=== PATIENT | male | born 1950 | race Caucasian/White ===

== ENCOUNTER 2016-11-27 10:54 | Day surgery (SDC) | payer BC ==
[2016-11-27] MEDS ORDERED: PROPOFOL 200 MG/20 ML VIAL IVP ONE (11:04)
[2016-11-27] MEDS ORDERED: BENZOCAINE UNIT DOSE SPRAY HURRICAINE MM ONE (11:04)
[2016-11-27] MEDS ORDERED: MIDAZOLAM 2 MG/2 ML VIAL IVP ONE (11:04)
[2016-11-27] MEDS ORDERED: fentaNYL 100 MCG/2 ML INJ IVP ONE (11:04)
[2016-11-27] MEDS ORDERED: NS 500 ML IV ONE (11:04)
--- NOTE | 2016-11-27 11:33 | CPEKG ---
Heart Rate: 89 RR Interval: 674 QRSD Interval: 90 QT Interval: 320 QTC Interval: 390 QRS [place]: 92 T Wave [place]: 7 EKG Severity - ABNORMAL ECG - EKG Impression: ATRIAL FIBRILLATION, V-RATE 65-117 EKG Impression: RIGHT AXIS DEVIATION Electronically Signed By: Bright Jaime 27-Nov-2016 14:20:26
[2016-11-27] MEDS ORDERED: PROPOFOL/EMULSION 500 MG/50 ML BOTTLE IV ONE (11:45)
[2016-11-27] MEDS ORDERED: LIDOCAINE 2% 5 ML SDV ONE (11:45)
[2016-11-27 12:17] LABS: APTT 32.5 SEC (23.0-38.0); INR 1.42 (0.83-1.16); PROTIME(PATIENT) 17.3 SEC (12.0-15.0)
--- NOTE | 2016-11-27 12:24 | CPEKG ---
Heart Rate: 68 RR Interval: 882 P-R Interval: 148 QRSD Interval: 98 QT Interval: 380 QTC Interval: 405 P [place]: 66 QRS [place]: 83 T Wave [place]: 29 EKG Severity - OTHERWISE NORMAL ECG - EKG Impression: SINUS RHYTHM EKG Impression: BORDERLINE RIGHT AXIS DEVIATION Electronically Signed By: Bright Jaime 27-Nov-2016 14:20:07
[2016-11-27 12:27] LABS: ANION GAP 11 mEq/L (8-16); CALCIUM 9.5 mg/dL (8.5-10.4); CARBON DIOXIDE 22 mEq/l (22-31); CHLORIDE 109 mEq/L (97-110); CREATININE 0.9 mg/dL (0.7-1.3); GLOMERULAR FILTRATION RATE > 60; GLUCOSE 103 mg/dL (70-100); MAGNESIUM 2.1 mg/dL (1.6-2.3); POTASSIUM 4.6 mEq/L (3.5-5.2); SODIUM 142 mEq/L (134-144)
--- NOTE | 2016-11-27 15:26 | CPR ---
[f rep st] NONINVASIVE CARDIAC PROCEDURE REPORT PROCEDURE PERFORMED: JERMEY guided cardioversion. JEREMY has been dictated separately. ANESTHESIOLOGIST: Dr. Mack Dao. PROCEDURE: JEREMY was done. There was no significant valvular disease. Left ventricular ejection fra ction was normal. There was no left atrial or left atrial appendage thrombus. A single 200 joule biphasic synchronized DC shock converted the patient to sinus rhythm. There were no complications. /[id number]/MODL
== END 2016-11-27 13:47 | disposition home or self-care (01) ==
LOC: FCATH 10:54
PROVIDERS: ATTEND Internal Medicine Cardiovascular Disease
PROC: 5A2204Z Restoration of Cardiac Rhythm, Single (ICD-10-PCS; principal; 2016-11-27)
PROC: B246ZZ4 Ultrasonography of Right and Left Heart, Transesophageal (ICD-10-PCS; principal; 2016-11-27)
DX: I48.91 Unspecified atrial fibrillation (principal)
CPT/HCPCS: J2704

== ENCOUNTER 2017-01-23 10:57 | Day surgery (SDC) | payer BC ==
[2017-01-23] MEDS ORDERED: NS 500 ML IV ONE (11:00)
[2017-01-23] MEDS ORDERED: MIDAZOLAM 2 MG/2 ML VIAL IVP ONE (11:00)
[2017-01-23] MEDS ORDERED: PROPOFOL 200 MG/20 ML VIAL IVP ONE (11:00)
[2017-01-23] MEDS ORDERED: ETOMIDATE 20 MG/10 ML VIAL IVP ONE (11:00)
[2017-01-23] MEDS ORDERED: fentaNYL 100 MCG/2 ML INJ IVP ONE (11:00)
[2017-01-23] MEDS ORDERED: BENZOCAINE UNIT DOSE SPRAY HURRICAINE MM ONE (11:00)
--- NOTE | 2017-01-23 11:21 | CPEKG ---
Heart Rate: 69 RR Interval: 870 QRSD Interval: 106 QT Interval: 396 QTC Interval: 425 QRS [place]: 101 T Wave [place]: -19 EKG Severity - ABNORMAL ECG - EKG Impression: ATRIAL FIBRILLATION EKG Impression: PROBABLE RIGHT VENTRICULAR HYPERTROPHY EKG Impression: BORDERLINE T ABNORMALITIES, INFERIOR LEADS Electronically Signed By: Parris Back 23-Jan-2017 17:03:03
[2017-01-23] MEDS ORDERED: LIDOCAINE 2% 5 ML SDV ONE (11:33)
[2017-01-23] MEDS ORDERED: PROPOFOL 200 MG/20 ML VIAL ONE (11:33)
[2017-01-23 11:54] LABS: INR 1.47 (0.83-1.16); PROTIME(PATIENT) 17.8 SEC (12.0-15.0)
[2017-01-23 11:55] LABS: APTT 33.1 SEC (23.0-38.0)
[2017-01-23 11:59] LABS: ANION GAP 10 mEq/L (8-16); CALCIUM 9.2 mg/dL (8.5-10.4); CARBON DIOXIDE 24 mEq/l (22-31); CHLORIDE 107 mEq/L (97-110); CREATININE 0.9 mg/dL (0.7-1.3); GLOMERULAR FILTRATION RATE > 60; GLUCOSE 99 mg/dL (70-100); MAGNESIUM 2.3 mg/dL (1.6-2.3); POTASSIUM 4.3 mEq/L (3.5-5.2); SODIUM 141 mEq/L (134-144)
--- NOTE | 2017-01-23 12:05 | CPEKG ---
Heart Rate: 54 RR Interval: 1111 P-R Interval: 176 QRSD Interval: 106 QT Interval: 424 QTC Interval: 402 P [place]: 59 QRS [place]: 89 T Wave [place]: 29 EKG Severity - NORMAL ECG - EKG Impression: SINUS RHYTHM Electronically Signed By: Parris Back 23-Jan-2017 17:02:36
--- NOTE | 2017-01-24 07:05 | CPR ---
[f rep st] NONINVASIVE CARDIAC PROCEDURE REPORT PROCEDURE PERFORMED: Cardioversion. INDICATION: Persistent atrial fibrillation. PROCEDURE: Dr. Cesar Pizano administered IV general anesthesia after all appropriate monitoring was established and all consents were signed. Patient was in the CVC. JEREMY was done, and this has b een dictated separately. A single 200 joule biphasic synchronized DC shock was administered which c onverted him to normal sinus rhythm. For anticoagulation, the patient has been on uninterrupted Xarelto. He is going to run out of Xarel to in 2 weeks and would prefer to switch to Pradaxa. He usually takes the Xarelto in the morning. I have asked him to take the last dose of his Xarelto and the same evening start Pradaxa 150 mg b.i. d. I have given him a prescription for this and have also asked his nurse to review this informatio n with him once more. /[id number]/MODL
== END 2017-01-23 13:31 | disposition home or self-care (01) ==
LOC: FCATH 10:57
PROVIDERS: ATTEND Internal Medicine Cardiovascular Disease
DX: I48.1 Persistent atrial fibrillation (principal); N40.1 Benign prostatic hyperplasia with lower urinary tract symptoms; G47.33 Obstructive sleep apnea (adult) (pediatric)
CPT/HCPCS: J2704; J3010

== ENCOUNTER 2017-02-27 10:50 | Day surgery (SDC) | payer BC ==
[2017-02-27] MEDS ORDERED: MIDAZOLAM 2 MG/2 ML VIAL IVP ONE (10:58)
[2017-02-27] MEDS ORDERED: fentaNYL 100 MCG/2 ML INJ IVP ONE (10:58)
[2017-02-27] MEDS ORDERED: PROPOFOL 200 MG/20 ML VIAL IVP ONE (10:58)
[2017-02-27] MEDS ORDERED: NS 500 ML IV ONE (10:58)
--- NOTE | 2017-02-27 11:19 | CPEKG ---
Heart Rate: 80 RR Interval: 750 QRSD Interval: 108 QT Interval: 396 QTC Interval: 457 QRS [place]: 96 T Wave [place]: 17 EKG Severity - ABNORMAL ECG - EKG Impression: ATRIAL FIBRILLATION EKG Impression: LEFT POSTERIOR FASCICULAR BLOCK Electronically Signed By: Sánchez Norman 27-Feb-2017 15:52:44
[2017-02-27 11:52] LABS: INR 1.55 (0.83-1.16); PROTIME(PATIENT) 18.6 SEC (12.0-15.0)
[2017-02-27 11:53] LABS: APTT 31.1 SEC (23.0-38.0)
[2017-02-27 12:07] LABS: ANION GAP 10 mEq/L (8-16); CALCIUM 9.3 mg/dL (8.5-10.4); CARBON DIOXIDE 23 mEq/l (22-31); CHLORIDE 106 mEq/L (97-110); GLOMERULAR FILTRATION RATE > 60; GLUCOSE 90 mg/dL (70-100); MAGNESIUM 2.3 mg/dL (1.6-2.3); POTASSIUM 4.7 mEq/L (3.5-5.2); SODIUM 139 mEq/L (134-144)
[2017-02-27] MEDS ORDERED: ATROPINE SULFATE 1 MG/10 ML SYR ONE (12:12)
--- NOTE | 2017-02-27 12:38 | CPEKG ---
Heart Rate: 55 RR Interval: 1091 P-R Interval: 188 QRSD Interval: 106 QT Interval: 412 QTC Interval: 394 P [place]: 53 QRS [place]: 90 T Wave [place]: 25 EKG Severity - BORDERLINE ECG - EKG Impression: SINUS RHYTHM EKG Impression: PROBABLE LEFT ATRIAL ABNORMALITY Electronically Signed By: Sánchez Norman 27-Feb-2017 15:52:40
--- NOTE | 2017-02-28 20:53 | PDTEE1 ---
JEREMY Cardioversion Procedure Procedure: Electrical Cardioversion, Transesophageal Echo Indications: Atrial Fibrillation Consent: Signed and in Chart Anticoagulation: Xarelto Procedural Details: Pads were placed in anterior-posterior position. JEREMY probe was advanced and standard images obtained. There is no evidence of left atrial or left atrial appendage thrombus. Synchronized cardioversion attempt #1: 200J Results: Normal sinus rhythm Conclusions: Successful JEREMY Cardioversion (No complications)
== END 2017-02-27 13:10 | disposition home or self-care (01) ==
LOC: FCATH 10:50
PROVIDERS: ATTEND Internal Medicine Cardiovascular Disease
PROC: B245ZZ4 Ultrasonography of Left Heart, Transesophageal (ICD-10-PCS; principal; 2017-02-27)
PROC: 5A2204Z Restoration of Cardiac Rhythm, Single (ICD-10-PCS; principal; 2017-02-27)
DX: I48.1 Persistent atrial fibrillation (principal); Z86.718 Personal history of other venous thrombosis and embolism
CPT/HCPCS: J0461; J2704